=== PATIENT | female | born 1985 | race Caucasian/White ===

== ENCOUNTER 2017-09-24 21:54 | Emergency (ER) | payer BC ==
[2014-03-21 15:04] VITALS: Wt 104.3 kg
[~2017-09-24 21:54] MED LIST: ACET500T68 PO; BIRTH CONTROL PO; CEP250 PO; CEPH-13 PO; IBUP800T37 PO; LANS15CA54 PO; ONDA8TAB94 PO; PER PO; PNV11TAB PO; TRAZ50 PO
--- NOTE | 2017-09-24 22:02 | ER Report ---
History and Physical Time Seen By MD: 22:01 HPI/ROS CHIEF COMPLAINT: Fever to 105 at home HISTORY OF PRESENT ILLNESS: 32-year-old female presents ambulatory to the ER complaining of high fever at home. She was seen earlier today and diagnosed with bronchitis and placed on Zithromax and albuterol inhaler. She states her children have been sick and she contracted this illness from them. She denies dysuria, frequency or hematuria. She's been unable to keep the fever down with ibuprofen and Tylenol. Patient notes a productive cough of colored sputum. REVIEW OF SYSTEMS: Respiratory: As above Cardiovascular: No chest pain, no palpitations. Gastrointestinal: No vomiting, no abdominal pain. Musculoskeletal: No back pain. Allergies: Coded Allergies: codeine (Verified Allergy, Intermediate, 01/09/13) hydrocodone (Verified Allergy, Intermediate, 01/09/13) Home Meds Active Scripts Levofloxacin 500 Mg Tab (LEVAQUIN 500 MG TAB) 500 Mg Tablet, 500 MG PO DAILY for infection, #6 TAB Prov:RADHA YE DO 09/24/17 Ibuprofen (IBUPROFEN) 800 Mg Tablet, 1 TAB PO Q8H Y for PAIN, #30 TAB 0 Refills Prov:MADINA LARA MD 03/22/14 Reported Medications Fluoxetine Hcl (PROZAC) 40 Mg Capsule, 40 MG PO QDAY, CAPSULE 09/24/17 Fluoxetine Hcl (FLUOXETINE HCL) 20 Mg Capsule, 20 MG PO QDAY, CAPSULE 09/24/17 Tizanidine Hcl (TIZANIDINE HCL) 4 Mg Capsule, 4 MG PO TID, CAPSULE 09/24/17 Topiramate (Topiramate ER) 25 Mg Cap.spr.24 09/24/17 Gabapentin (GABAPENTIN) 300 Mg Capsule, 300 MG PO TID, CAPSULE 09/24/17 Cholecalciferol (Vitamin D3) (Vitamin D) 2,000 Unit Tablet 09/24/17 Lansoprazole (PREVACID) 15 Mg Capsule.dr, 15 MG PO QDAY Y for HEARTBURN 03/21/14 Discontinued Reported Medications [id number]/Iron Fumarate/Fa/Dss ( 19 TABLET) 1 Each Tablet, PO DAILY 03/21/14 Discontinued Scripts Oxycodone/Acetaminophen (OXYCODONE/ACETAMINOPHEN 5MG/325 MG) 5 Mg/325 Mg Tab, 1- 2 TAB PO Q4H Y for PAIN, #30 TAB 0 Refills Prov:MADINA LARA MD 03/22/14 Reviewed Nurses Notes: Yes Old Medical Records Reviewed: Yes Hx Smoking: No Smoking Status: Never Smoker Exposure to Second Hand Smoke?: No Hx Substance Use Disorder: No Hx Alcohol Use: No Constitutional Vital Sign - Last 24 Hours 09/24/17 09/24/17 09/24/17 09/24/17 21:58 22:00 22:24 22:30 Temp 102.4 Pulse 104 98 Resp 18 B/P (MAP) 136/78 136/78 (97) 119/67 (84) Pulse Ox 93 93 O2 Delivery Room Air 09/24/17 09/24/17 09/24/17 09/24/17 22:54 23:00 23:21 23:26 Pulse 89 93 B/P (MAP) 102/67 (79) 119/74 (89) Pulse Ox 96 94 09/24/17 09/24/17 09/24/17 23:30 23:35 23:40 Temp 101.1 Pulse 96 B/P (MAP) 126/63 (84) Pulse Ox 92 Physical Exam General Appearance: The patient is alert, has no immediate need for airway protection and no current signs of toxicity. Moderate distress, repetitive coughing, fever 102.7, pulse ox normal, vital signs stable HEENT: Pupils equal and round no injection. TMs normal, oropharynx with moderate redness, no exudate Respiratory: Chest is non tender, lungs are clear to auscultation. Rhonchi noted in right lung Cardiac: regular rate and rhythm Gastrointestinal: Abdomen is soft and non tender, no masses, bowel sounds normal. Musculoskeletal: Neck: Neck is supple and non tender. No lymphadenopathy, no meningismus Extremities have full range of motion and are non tender. No edema, no calf tenderness Skin: No rashes or lesions. DIFFERENTIAL DIAGNOSIS: After history and physical exam differential diagnosis was considered for adult fever including but not limited to viral syndromes including influenza, urinary tract infection, pneumonia and sepsis. Medical Decision Making Data Points Laboratory Hematology Test 09/24/17 22:11 09/24/17 23:17 Influenza Virus Type A (PCR) Negative (NEGATIVE) Influenza Virus Type B (PCR) Negative (NEGATIVE) Urine Color Yellow Urine Clarity Clear Urine pH 6.0 pH (4.8-9.5) Urine Specific Adrian 1.019 Urine Protein Negative mg/dL (NEGATIVE) Urine Glucose (UA) Negative mg/dL (NEGATIVE) Urine Ketones Negative mg/dL (NEGATIVE) Urine Blood Negative (NEGATIVE) Urine Nitrite Negative (NEGATIVE) Urine Bilirubin Negative (NEGATIVE) Urine Urobilinogen 4.0 mg/dL (0.2-1.9) Urine Leukocyte Esterase Trace (NEGATIVE) Urine RBC <1 /HPF (0-2/HPF) Urine WBC 4 /HPF (0-5/HPF) Urine Squamous Epithelial Cells Many /LPF (</=FEW) Urine Bacteria Negative /HPF (NONE-FEW) Urine Mucus None /HPF (NONE-FEW) Chemistry Test 09/24/17 22:11 09/24/17 23:17 Influenza Virus Type A (PCR) Negative (NEGATIVE) Influenza Virus Type B (PCR) Negative (NEGATIVE) Urine Color Yellow Urine Clarity Clear Urine pH 6.0 pH (4.8-9.5) Urine Specific Adrian 1.019 Urine Protein Negative mg/dL (NEGATIVE) Urine Glucose (UA) Negative mg/dL (NEGATIVE) Urine Ketones Negative mg/dL (NEGATIVE) Urine Blood Negative (NEGATIVE) Urine Nitrite Negative (NEGATIVE) Urine Bilirubin Negative (NEGATIVE) Urine Urobilinogen 4.0 mg/dL (0.2-1.9) Urine Leukocyte Esterase Trace (NEGATIVE) Urine RBC <1 /HPF (0-2/HPF) Urine WBC 4 /HPF (0-5/HPF) Urine Squamous Epithelial Cells Many /LPF (</=FEW) Urine Bacteria Negative /HPF (NONE-FEW) Urine Mucus None /HPF (NONE-FEW) Urinalysis Test 09/24/17 23:17 Urine Color Yellow Urine Clarity Clear Urine pH 6.0 pH (4.8-9.5) Urine Specific Adrian 1.019 Urine Protein Negative mg/dL (NEGATIVE) Urine Glucose (UA) Negative mg/dL (NEGATIVE) Urine Ketones Negative mg/dL (NEGATIVE) Urine Blood Negative (NEGATIVE) Urine Nitrite Negative (NEGATIVE) Urine Bilirubin Negative (NEGATIVE) Urine Urobilinogen 4.0 mg/dL (0.2-1.9) Urine Leukocyte Esterase Trace (NEGATIVE) Urine RBC <1 /HPF (0-2/HPF) Urine WBC 4 /HPF (0-5/HPF) Urine Squamous Epithelial Cells Many /LPF (</=FEW) Urine Bacteria Negative /HPF (NONE-FEW) Urine Mucus None /HPF (NONE-FEW) EKG/Imaging Imaging X-ray: Two-view chest x-ray was obtained. I viewed the images myself on the PACS system. My interpretation of the images is: There is consolidation noted in the right middle lobe consistent with pneumonia. The radiologist interpretation had no clinically significant variation from this interpretation. ED Course/Re-evaluation ED Course Patient was admitted to an examination room. H&P was done. The differential diagnoses was considered. On medical examination. Patient has a cough and a fever. She's been able to control the fever at home. A chest x-ray, urinalysis and rapid influenza are performed. Patient's chest x-ray shows an obvious right middle lobe infiltrate. Patient will be switched to Levaquin. She's given her 1st dose of 500 mg orally here in the emergency department. She is advised aggressive fever control by alternating ibuprofen and Tylenol every 4 hours. She is advised to increase her fluid intake. Patient advised to continue on the albuterol inhaler which was provided to her earlier today. Decision to Disposition Date: Sep 24, 2017 Decision to Disposition Time: 23:32 Depart Departure Latest Vital Signs Vital Signs Date Time Temp Pulse Resp B/P (MAP) Pulse Ox O2 Delivery O2 Flow Rate FiO2 09/24/17 23:40 101.1 09/24/17 23:35 96 92 09/24/17 23:30 126/63 (84) 09/24/17 21:58 18 Room Air Impression: Primary Impression: Right middle lobe pneumonia Additional Impression: Fever Condition: Improved Disposition: HOME OR SELF-CARE New Scripts Levofloxacin 500 Mg Tab (LEVAQUIN 500 MG TAB) 500 Mg Tablet 500 MG PO DAILY for infection, #6 TAB Prov: RADHA YE DO 09/24/17 Patient Instructions: Bacterial Pneumonia (ED) Additional Instructions: Drink plenty of fluids Take Levaquin 500 mg per day Follow-up with primary care if unimproved in 3-5 days Problem Qualifiers Primary Impression: Right middle lobe pneumonia Pneumonia type: due to unspecified organism Qualified Codes: J18.1 - Lobar pneumonia, unspecified organism Additional Impression: Fever Fever type: unspecified Qualified Codes: R50.9 - Fever, unspecified RADHA YE DO Sep 24, 2017 22:02
[2017-09-24] MEDS ORDERED: FLUO40CA76 PO (22:10)
[2017-09-24] MEDS ORDERED: TIZA4CAP3 PO (22:10)
[2017-09-24] MEDS ORDERED: GABA-549 PO (22:10)
[2017-09-24] MEDS ORDERED: CHOL200059 (22:10)
[2017-09-24] MEDS ORDERED: TOPI25CA6 (22:10)
[2017-09-24] MEDS ORDERED: FLUO-177 PO (22:10)
[2017-09-24 23:30] VITALS: BP 126/63
[2017-09-24] MEDS ORDERED: LEVO-85 PO (23:34)
[2017-09-24] MEDS ORDERED: LEVOFLOXACIN 500 MG TAB PO ONE (23:35)
--- NOTE | 2017-09-24 23:35 | RADIOLOGY IMAGING REPORT ---
FACILITY: [facility] PATIENT NAME: Noa Choi : 1985 MR: [id number] V: [id number] EXAM DATE: ORDERING PHYSICIAN: RADHA YE TECHNOLOGIST: Location: [facility] Patient: Noa Choi : 1985 Visit/Account:[id number] Date of Sevice: 09/24/2017 TWO VIEW CHEST 09/24/2017 11:20 PM. INDICATION: Fever. COMPARISON: None. FINDINGS: Lungs are well-expanded. There is patchy opacification in the right middle lobe that parti ally obscures the cardiac silhouette. The lungs are otherwise grossly clear. No pneumothorax or ple ural effusion. Pulmonary vasculature is unremarkable. Heart size is normal. IMPRESSION: Right middle lobe pneumonia. Report Dictated By: Dixon Haas MD at 09/24/2017 11:29 PM Report E-Signed By: Dixon Haas MD at 09/24/2017 11:31 PM [id number]
== END 2017-09-25 00:02 | disposition home or self-care (01) ==
LOC: ER 22:10
DX: J18.1 Lobar pneumonia, unspecified organism (principal)
CPT/HCPCS: 71046; 81001; 87502; 99283